=== PATIENT | male | born 1950 | race Caucasian/White ===

== ENCOUNTER 2017-10-15 12:03 | Emergency (ER) | payer BC, MEDICARE ==
[2017-10-15] MEDS ORDERED: Ketorolac 60 MG/2 ML SDV ONE (12:32)
[2017-10-15 17:57] VITALS: BP 133/100
--- NOTE | 2017-10-15 18:20 | CR ---
EXAMINATION: Lumbar spine HISTORY: Pain COMPARISON: None TECHNIQUE: AP and lateral views FINDINGS: The lumbar spinal alignment is normal. The vertebral body heights appear well maintained. L ikely chronic spondylolysis at L5 without significant spinal listhesis. Mild marginal osteophytes are noted. SI joints are symmetric. Bone mineralization is normal. Probable nonobstructing 9 mm left mckenzie al stone. IMPRESSION: 1. No acute findings demonstrated. 2. Likely chronic spondylolysis of L5. 3. Nonobstructing left nephrolithiasis.
== END 2017-10-15 14:05 | disposition home or self-care (01) ==
LOC: MW.ED 12:03
DX: M54.41 Lumbago with sciatica, right side (principal)
CPT/HCPCS: 72100; 72100-26; 96372; 99283; 99283-25

== ENCOUNTER 2020-04-08 14:09 | Observation (INO) | payer BC ==
[2020-04-08] MEDS ORDERED: Sodium Chloride 0.9% 2.5 ML Syringe FLUSH PRN (14:20)
[2020-04-08] MEDS ORDERED: Sodium Chloride 0.9% 10 ML Syringe FLUSH PRN (14:20)
[2020-04-08] MEDS ORDERED: Aspirin 81 MG Tab.Chew PO ONE (14:20)
--- NOTE | 2020-04-08 15:03 | CR ---
Chest: 2 views of the chest were obtained. Comparison: No previous chest x-ray. Cardiac silhouette and mediastinum are normal. Lungs are clear. Slight degenerative change is scattered within the spine. Impression: 1. Nothing acute is seen on 2 view chest x-ray. Diagnostic code #2 This report was dictated in MDT
[2020-04-08 15:05] LABS: BLOOD UREA NITROGEN,BUN 21 mg/dL (7.0-18.0); CARBON DIOXIDE,CO2 26.1 mmol/L (21.0-32.0); CHLORIDE,CL 105 mmol/L (98-107); GLUCOSE RANDOM 110 mg/dL (74-106); POTASSIUM,K 4.1 mmol/L (3.5-5.1); SODIUM,NA 142 mmol/L (136-148)
--- NOTE | 2020-04-08 15:21 | EDM.PDOC ---
ED HPI GENERAL MEDICAL PROBLEM - General Chief Complaint: General Stated Complaint: SENT BY RICH-HIGH BLOOD PRESSURE Time Seen by Provider: 04/08/20 14:11 Source of Information: Reports: Patient History Limitations: Reports: No Limitations - History of Present Illness INITIAL COMMENTS - FREE TEXT/NARRATIVE: History of present illness: 69-year-old male presenting after being sent by his primary care physician for cardiac evaluation. Patient reports over the last few days he has had some on and off chest pain/pressure as well as arm pain and shortness of breath. He presented to his primary care doctor's office today who was concerned about potential cardiac etiology and want him to have further cardiac work-up. Patient reports no prior cardiac history. Any other past medical history. Past surgical history including abdominal surgery. Review of systems: As per history of present illness and below otherwise all systems reviewed and negative. Past medical history: As per history of present illness and as reviewed below otherwise noncontributory. Surgical history: As per history of present illness and as reviewed below otherwise noncontributory. Social history: No reported history of drug or alcohol abuse. Former tobacco smoker, none for many years. Family history: As per history of present illness and as reviewed below otherwise noncontributory. Physical exam: HEENT: Atraumatic, normocephalic, mucous membranes moist, throat clear, Neck: supple, nontender, trachea midline. Lungs: No respiratory distress. Heart: RRR Abdomen: Soft, nondistended, nontender. Pelvis: Stable nontender. Extremities: Atraumatic. Neurovascularly unremarkable. Neuro: Awake, alert, oriented. Neuro Exam nonfocal. Diagnostics: [] Therapeutics: [] EGK performed today at 2:18 PM, sinus rhythm, left anterior fascicular block, no ischemia or STEMI. 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 Espinoza, this appears unchanged from EKG performed earlier today. MDM: EKG without acute ischemia/STEMI. Given aspirin here. Troponin negative. Chest x-ray unremarkable. Patient with cardiac risk factors , though no known past cardiac history. Will admit the patient for observation/ serial troponins. This was discussed with Dr. Reese, the admitting hospitalist who accepts admission. Impression: [] Plan: [] Definitive disposition and diagnosis as appropriate pending reevaluation and review of above. - Related Data Allergies Allergy/AdvReac Type Severity Reaction Status Date / Time No Known Allergies Allergy Verified 04/08/20 14:30 Home Meds: Home Meds Aspirin 81 mg PO DAILY 04/08/20 [History] Past Medical History Cardiovascular History: Reports: Blood Clots/VTE/DVT Other Gastrointestinal History: Had exploratory lap approx 10 years ago for possible "twisted colon" which resolved itself after he was "opened up" - Past Surgical History GI Surgical History: Reports: Appendectomy Social & Family History - Tobacco Use Smoking Status *Q: Current Every Day Smoker Years of Tobacco use: 40 Packs/Tins Daily: 0.1 - Recreational Drug Use Recreational Drug Use: No ED ROS GENERAL - Review of Systems Review Of Systems: See Below (See dictation) ED EXAM, GENERAL - Physical Exam Exam: See Below (See dictation) EKG INTERPRETATION EKG Interpretation Comments: EKG performed today at 2:18 PM, sinus rhythm, rate 77, left anterior fascicular block, no acute ischemia, no STEMI. Interpreted by me. Course - Vital Signs Last Recorded V/S: Last Vital Signs Temp 96.2 F L 04/08/20 14:27 Pulse 87 04/08/20 14:27 Resp 16 04/08/20 14:27 BP 146/95 H 04/08/20 14:59 Pulse Ox 94 L 04/08/20 14:27 - Orders/Labs/Meds Orders: Active Orders 24 hr Category Date Time Status EKG Documentation Completion [RC] STAT Care 04/08/20 14:20 Active Sodium Chloride 0.9% [Saline Flush] Med 04/08/20 14:20 Active 10 ml FLUSH ASDIRECTED PRN Sodium Chloride 0.9% [Saline Flush] Med 04/08/20 14:20 Active 2.5 ml FLUSH ASDIRECTED PRN Saline Lock Insert [OM.PC] Stat Oth 04/08/20 14:20 Ordered Medication Orders Sodium Chloride (Saline Flush) 10 ml FLUSH ASDIRECTED PRN PRN Reason: Keep Vein Open Sodium Chloride (Saline Flush) 2.5 ml FLUSH ASDIRECTED PRN PRN Reason: Keep Vein Open Labs: Laboratory Tests 04/08/20 04/08/20 04/08/20 Range/Units 14:24 14:24 14:24 WBC 7.67 (4.0-11.0) K/uL RBC 5.42 (4.50-5.90) M/uL Hgb 16.5 (13.0-17.0) g/dL Hct 48.2 (38.0-50.0) % MCV 88.9 (80.0-98.0) fL MCH 30.4 (27.0-32.0) pg MCHC 34.2 (31.0-37.0) g/dL RDW Std Deviation 43.7 (28.0-62.0) fl RDW Coeff of Adams 13 (11.0-15.0) % Plt Count 196 (150-400) K/uL MPV 10.90 (7.40-12.00) fL Neut % (Auto) 58.4 (48.0-80.0) % Lymph % (Auto) 30.6 (16.0-40.0) % [place] % (Auto) 8.0 (0.0-15.0) % Eos % (Auto) 2.5 (0.0-7.0) % Baso % (Auto) 0.5 (0.0-1.5) % Neut # (Auto) 4.5 (1.4-5.7) K/uL Lymph # (Auto) 2.4 (0.6-2.4) K/uL [place] # (Auto) 0.6 (0.0-0.8) K/uL Eos # (Auto) 0.2 (0.0-0.7) K/uL Baso # (Auto) 0.0 (0.0-0.1) K/uL Nucleated RBC % 0.0 /100WBC Nucleated RBCs # 0 K/uL INR 1.02 Sodium 142 (136-148) mmol/L Potassium 4.1 (3.5-5.1) mmol/L Chloride 105 (98-107) mmol/L Carbon Dioxide 26.1 (21.0-32.0) mmol/L BUN 21 H (7.0-18.0) mg/dL Creatinine 1.2 (0.8-1.3) mg/dL Est Cr Clr Drug Dosing 64.67 mL/min Estimated GFR (MDRD) > 60.0 ml/min Glucose 110 H (74-106) mg/dL Calcium 9.2 (8.5-10.1) mg/dL Total Bilirubin 0.7 (0.2-1.0) mg/dL AST 24 (15-37) IU/L ALT 34 (14-63) IU/L Alkaline Phosphatase 105 (46-116) U/L Troponin I < 0.050 (0.000-0.056) ng/mL B-Natriuretic Peptide (<100) PG/ML Total Protein 7.9 (6.4-8.2) g/dL Albumin 4.6 (3.4-5.0) g/dL Globulin 3.3 (2.6-4.0) g/dL Albumin/Globulin Ratio 1.4 (0.9-1.6) 04/08/20 Range/Units 14:24 WBC (4.0-11.0) K/uL RBC (4.50-5.90) M/uL Hgb (13.0-17.0) g/dL Hct (38.0-50.0) % MCV (80.0-98.0) fL MCH (27.0-32.0) pg MCHC (31.0-37.0) g/dL RDW Std Deviation (28.0-62.0) fl RDW Coeff of Adams (11.0-15.0) % Plt Count (150-400) K/uL MPV (7.40-12.00) fL Neut % (Auto) (48.0-80.0) % Lymph % (Auto) (16.0-40.0) % [place] % (Auto) (0.0-15.0) % Eos % (Auto) (0.0-7.0) % Baso % (Auto) (0.0-1.5) % Neut # (Auto) (1.4-5.7) K/uL Lymph # (Auto) (0.6-2.4) K/uL [place] # (Auto) (0.0-0.8) K/uL Eos # (Auto) (0.0-0.7) K/uL Baso # (Auto) (0.0-0.1) K/uL Nucleated RBC % /100WBC Nucleated RBCs # K/uL INR Sodium (136-148) mmol/L Potassium (3.5-5.1) mmol/L Chloride (98-107) mmol/L Carbon Dioxide (21.0-32.0) mmol/L BUN (7.0-18.0) mg/dL Creatinine (0.8-1.3) mg/dL Est Cr Clr Drug Dosing mL/min Estimated GFR (MDRD) ml/min Glucose (74-106) mg/dL Calcium (8.5-10.1) mg/dL Total Bilirubin (0.2-1.0) mg/dL AST (15-37) IU/L ALT (14-63) IU/L Alkaline Phosphatase (46-116) U/L Troponin I (0.000-0.056) ng/mL B-Natriuretic Peptide 8 (<100) PG/ML Total Protein (6.4-8.2) g/dL Albumin (3.4-5.0) g/dL Globulin (2.6-4.0) g/dL Albumin/Globulin Ratio (0.9-1.6) Meds: Medications Generic Name Dose Route Start Last Admin Trade Name Freq PRN Reason Stop Dose Admin Sodium Chloride 10 ml 04/08/20 14:20 Saline Flush FLUSH ASDIRECTED PRN Keep Vein Open Sodium Chloride 2.5 ml 04/08/20 14:20 Saline Flush FLUSH ASDIRECTED PRN Keep Vein Open Discontinued Medications Generic Name Dose Route Start Last Admin Trade Name Freq PRN Reason Stop Dose Admin Aspirin 324 mg 04/08/20 14:20 04/08/20 14:59 Aspirin PO 04/08/20 14:21 324 mg ONETIME ONE Administration - Re-Assessments/Exams Free Text/Narrative Re-Assessment/Exam: 04/08/20 16:12 No acute distress. Discussed with Dr. Reese, agrees with plan for admission. Recommends admit in observation status. Departure - Departure Time of Disposition: 16:13 Disposition: Refer to Observation Clinical Impression: Chest pain, moderate coronary artery risk - Discharge Information Sepsis Event Note (ED) - Evaluation Sepsis Screening Result: No Definite Risk - Focused Exam Vital Signs: Vital Signs Temp Pulse Resp BP Pulse Ox 04/08/20 14:59 146/95 H 04/08/20 14:27 96.2 F L 87 16 163/106 H 94 L - My Orders Last 24 Hours: My Active Orders 04/08/20 14:20 EKG Documentation Completion [RC] STAT Sodium Chloride 0.9% [Saline Flush] 10 ml FLUSH ASDIRECTED PRN Sodium Chloride 0.9% [Saline Flush] 2.5 ml FLUSH ASDIRECTED PRN Saline Lock Insert [OM.PC] Stat - Assessment/Plan Last 24 Hours: My Active Orders 04/08/20 14:20 EKG Documentation Completion [RC] STAT Sodium Chloride 0.9% [Saline Flush] 10 ml FLUSH ASDIRECTED PRN Sodium Chloride 0.9% [Saline Flush] 2.5 ml FLUSH ASDIRECTED PRN Saline Lock Insert [OM.PC] Stat
--- NOTE | 2020-04-08 17:37 | PCM.HP.2 ---
H&P History of Present Illness - General Date of Service: 04/08/20 Admit Problem/Dx: Admission Diagnosis/Problem Admission Diagnosis/Problem Chest pain with moderate risk of acute coronary syndrome Source of Information: Patient History Limitations: Reports: No Limitations - History of Present Illness Initial Comments - Free Text/Narative: 69 y.o male w. significant PMH of possible stroke vs TIA (pt unsure/2 years ago ) presenting today to ED on recommendations from his PCP at [facility] across the street. Pt. mentioned to PCP chest discomfort x 2-3 weeks but worsening these past couple of days. Describes it as a "chest soreness" and or " my chest got bruised"; however denies any acute trauma and or strenuous exercise. Otherwise denies any fevers, chills, body aches, recent travel, and or sick contacts. pt. describes some episodes of dizziness in the AM ; when getting up and moving around ; denies any vertiginous symptoms but describes it as getting weak but never falling over , completely passing out or LOC. pt does endorse not having been to a doctor "for many years". pt. otherwise has no acute coplaints at this time. 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 CXR: no acute cardio-pulmonary pathology appreciated per radiology. Chest Pain Score (Numeric/FACES): 5 - Related Data Allergies/Adverse Reactions: Allergies Allergy/AdvReac Type Severity Reaction Status Date / Time Penicillins Allergy unknown Verified 04/08/20 18:09 Home Medications: Home Meds Aspirin 81 mg PO DAILY 04/08/20 [History] Omeprazole 20 mg PO BIDAC cap.cr 04/09/20 [Rx] Past Medical History Cardiovascular History: Reports: Blood Clots/VTE/DVT Other Gastrointestinal History: Had exploratory lap approx 10 years ago for possible "twisted colon" which resolved itself after he was "opened up" - Past Surgical History GI Surgical History: Reports: Appendectomy Social & Family History - Tobacco Use Smoking Status *Q: Current Every Day Smoker Years of Tobacco use: 40 Packs/Tins Daily: 0.1 - Recreational Drug Use Recreational Drug Use: No H&P Review of Systems - Review of Systems: Review Of Systems: See Below General: Reports: No Symptoms. Denies: Fever, Chills, Malaise, Weakness HEENT: Reports: No Symptoms Pulmonary: Reports: No Symptoms. Denies: Shortness of Breath, Wheezing, Pleuritic Chest Pain, Cough, Sputum Cardiovascular: Reports: Chest Pain, Dyspnea on Exertion. Denies: Edema, Lightheadedness, Syncope, Claudication, Blood Pressure Problem Gastrointestinal: Reports: No Symptoms. Denies: Abdominal Pain, Constipation, Diarrhea Genitourinary: Reports: No Symptoms. Denies: Dysuria, Frequency, Burning, Pain , Urgency Musculoskeletal: Reports: No Symptoms Skin: Reports: No Symptoms Psychiatric: Reports: No Symptoms Neurological: Reports: No Symptoms. Denies: Headache Exam - Exam Exam: See Below - Vital Signs Vital Signs: Last Vital Signs Temp 96.2 F L 04/08/20 14:27 Pulse 87 04/08/20 14:27 Resp 16 04/08/20 14:27 BP 146/95 H 04/08/20 14:59 Pulse Ox 94 L 04/08/20 14:27 Weight: 104.326 kg - Exam Quality Assessment: No: Supplemental Oxygen General: Alert, Oriented, Cooperative HEENT: EOMI, Other (missing dentition) Neck: Supple, Trachea Midline Lungs: Clear to Auscultation, Normal Respiratory Effort Cardiovascular: Regular Rate, Regular Rhythm GI/Abdominal Exam: Normal Bowel Sounds, Soft, Non-Tender (Male) Exam: No Hernia Back Exam: Normal Inspection Extremities: Other (trace pitting edema ) Skin: Other (lesion/abrasion over left hand; clean ) Neurological: Cranial Nerves Intact Neuro Extensive - Mental Status: Alert, Oriented x3, Normal Mood/Affect Neuro Extensive - Motor, Sensory, Reflexes: CN II-XII Intact, Normal Gait Psychiatric: Alert, Normal Affect, Normal Mood - Patient Data Lab Results Last 24 hrs: Laboratory Results - last 24 hr 04/08/20 04/08/20 04/08/20 Range/Units 14:24 14:24 14:24 WBC 7.67 (4.0-11.0) K/uL RBC 5.42 (4.50-5.90) M/uL Hgb 16.5 (13.0-17.0) g/dL Hct 48.2 (38.0-50.0) % MCV 88.9 (80.0-98.0) fL MCH 30.4 (27.0-32.0) pg MCHC 34.2 (31.0-37.0) g/dL RDW Std Deviation 43.7 (28.0-62.0) fl RDW Coeff of Adams 13 (11.0-15.0) % Plt Count 196 (150-400) K/uL MPV 10.90 (7.40-12.00) fL Neut % (Auto) 58.4 (48.0-80.0) % Lymph % (Auto) 30.6 (16.0-40.0) % [place] % (Auto) 8.0 (0.0-15.0) % Eos % (Auto) 2.5 (0.0-7.0) % Baso % (Auto) 0.5 (0.0-1.5) % Neut # (Auto) 4.5 (1.4-5.7) K/uL Lymph # (Auto) 2.4 (0.6-2.4) K/uL [place] # (Auto) 0.6 (0.0-0.8) K/uL Eos # (Auto) 0.2 (0.0-0.7) K/uL Baso # (Auto) 0.0 (0.0-0.1) K/uL Nucleated RBC % 0.0 /100WBC Nucleated RBCs # 0 K/uL INR 1.02 Sodium 142 (136-148) mmol/L Potassium 4.1 (3.5-5.1) mmol/L Chloride 105 (98-107) mmol/L Carbon Dioxide 26.1 (21.0-32.0) mmol/L BUN 21 H (7.0-18.0) mg/dL Creatinine 1.2 (0.8-1.3) mg/dL Est Cr Clr Drug Dosing 64.67 mL/min Estimated GFR (MDRD) > 60.0 ml/min Glucose 110 H (74-106) mg/dL Calcium 9.2 (8.5-10.1) mg/dL Total Bilirubin 0.7 (0.2-1.0) mg/dL AST 24 (15-37) IU/L ALT 34 (14-63) IU/L Alkaline Phosphatase 105 (46-116) U/L Troponin I < 0.050 (0.000-0.056) ng/mL B-Natriuretic Peptide (<100) PG/ML Total Protein 7.9 (6.4-8.2) g/dL Albumin 4.6 (3.4-5.0) g/dL Globulin 3.3 (2.6-4.0) g/dL Albumin/Globulin Ratio 1.4 (0.9-1.6) 04/08/20 Range/Units 14:24 WBC (4.0-11.0) K/uL RBC (4.50-5.90) M/uL Hgb (13.0-17.0) g/dL Hct (38.0-50.0) % MCV (80.0-98.0) fL MCH (27.0-32.0) pg MCHC (31.0-37.0) g/dL RDW Std Deviation (28.0-62.0) fl RDW Coeff of Adams (11.0-15.0) % Plt Count (150-400) K/uL MPV (7.40-12.00) fL Neut % (Auto) (48.0-80.0) % Lymph % (Auto) (16.0-40.0) % [place] % (Auto) (0.0-15.0) % Eos % (Auto) (0.0-7.0) % Baso % (Auto) (0.0-1.5) % Neut # (Auto) (1.4-5.7) K/uL Lymph # (Auto) (0.6-2.4) K/uL [place] # (Auto) (0.0-0.8) K/uL Eos # (Auto) (0.0-0.7) K/uL Baso # (Auto) (0.0-0.1) K/uL Nucleated RBC % /100WBC Nucleated RBCs # K/uL INR Sodium (136-148) mmol/L Potassium (3.5-5.1) mmol/L Chloride (98-107) mmol/L Carbon Dioxide (21.0-32.0) mmol/L BUN (7.0-18.0) mg/dL Creatinine (0.8-1.3) mg/dL Est Cr Clr Drug Dosing mL/min Estimated GFR (MDRD) ml/min Glucose (74-106) mg/dL Calcium (8.5-10.1) mg/dL Total Bilirubin (0.2-1.0) mg/dL AST (15-37) IU/L ALT (14-63) IU/L Alkaline Phosphatase (46-116) U/L Troponin I (0.000-0.056) ng/mL B-Natriuretic Peptide 8 (<100) PG/ML Total Protein (6.4-8.2) g/dL Albumin (3.4-5.0) g/dL Globulin (2.6-4.0) g/dL Albumin/Globulin Ratio (0.9-1.6) Result Diagrams: 04/09/20 02:18 04/09/20 02:18 Sepsis Event Note - Evaluation Sepsis Screening Result: No Definite Risk - Focused Exam Vital Signs: Vital Signs Temp Pulse Resp BP Pulse Ox 04/08/20 14:59 146/95 H 04/08/20 14:27 96.2 F L 87 16 163/106 H 94 L Date Exam was Performed: 04/09/20 Time Exam was Performed: 13:12 Problem List Initiated/Reviewed/Updated: Yes Orders Last 24hrs: Active Orders 24 hr Category Date Time Status Admission Status [Patient Status] [ADT] Stat ADT 04/08/20 16:14 Active Activity as Tolerated [RC] .Routine Care 04/08/20 17:36 Active Cardiac Monitoring [RC] . DIRECTED Care 04/08/20 16:14 Active EKG Documentation Completion [RC] STAT Care 04/08/20 14:20 Active Intake and Output [RC] ASDIRECTED Care 04/08/20 17:36 Active Telemetry Monitoring [Cardiac Monitoring] [RC] . Care 04/08/20 17:22 Active DIRECTED Vital Signs [RC] PER UNIT ROUTINE Care 04/08/20 17:35 Active Sodium Chloride 0.9% [Saline Flush] Med 04/08/20 14:20 Active 10 ml FLUSH ASDIRECTED PRN Sodium Chloride 0.9% [Saline Flush] Med 04/08/20 14:20 Active 2.5 ml FLUSH ASDIRECTED PRN Saline Lock Insert [OM.PC] Stat Oth 04/08/20 14:20 Ordered Medication Orders Sodium Chloride (Saline Flush) 10 ml FLUSH ASDIRECTED PRN PRN Reason: Keep Vein Open Sodium Chloride (Saline Flush) 2.5 ml FLUSH ASDIRECTED PRN PRN Reason: Keep Vein Open Assessment/Plan Comment:: Assessment: 1. Chest pain w. concerns for ACS 2. Elevated BP 3. PMH: possible TIA vs stroke on daily ASA Plan: Admit to obs. Telemetry. Full code. Up ad nick. i/o's per routine. Cardiac diet. DVT: heparin 5000 q12. GI: Omeprazole 20 bid 1. CP/ACS: continue to trend troponin q 6 hours x 2. EKG: NSR w. concners for LAFB; continue to monitor. Vitals otherwise stable; BP mildly elevated but will monitor on telemetry. CXR: negative BNP: WNL Additional labs: lipid panel, A1c. 2. Will continue to monitor at this time; pt. in no acute distress at this time.
[2020-04-08] MEDS: Heparin Sodium 5,000 Units/ML Vial SUBCUT SCH (18:26)
[2020-04-08 20:21] LABS: HEMOGLOBIN A1C 6.3 % (4.5-6.2)
[2020-04-09 02:44] LABS: BLOOD UREA NITROGEN,BUN 24 mg/dL (7.0-18.0); CARBON DIOXIDE,CO2 26.5 mmol/L (21.0-32.0); CHLORIDE,CL 105 mmol/L (98-107); GLUCOSE RANDOM 115 mg/dL (74-106); POTASSIUM,K 3.7 mmol/L (3.5-5.1); SODIUM,NA 141 mmol/L (136-148)
[2020-04-09] MEDS: Heparin Sodium 5,000 Units/ML Vial SUBCUT SCH (06:36)
[2020-04-09] MEDS ORDERED: Omeprazole 20 MG Cap.CR PO SCH (07:30)
[2020-04-09] MEDS ORDERED: Aspirin 81 MG Tab.Chew PO SCH (09:00)
[2020-04-09] MEDS ORDERED: Insulin Aspart 100 Units/ML 3 ML Pen SUBCUT SCH (11:30)
--- NOTE | 2020-04-09 12:30 | PCM.DCSUM1 ---
<Candie Bernard - Last Filed: 04/09/20 13:09> Discharge Summary - Hospital Course Free Text/Narrative:: pt. is a 69 y.o male w. significant PMH of possible TIA/Stroke ; presenting from outpatient facility for concners for an ACS. pt. has been c.o vague chest pain which has been going on for approx. 3-4 weeks. Describes CP as a "soreness " and "bruised" feeling ; that does not really change. Denies any fevers, chills , Bodya aches, and or palpitations. Endorses some mild dyspnea on exertion at times but otherwise states he has no problems completing his work and ADL's. Uses ASA daily as was recommended but cannot recall exact diagnosis he had with his previous tia vs stroke 2 years prior. Mentions some dizziness at times in the AM but cannot think of any other inciting factor. ED course: EGK performed at 2:18 PM, sinus rhythm, left anterior fascicular block, no ischemia or STEMI. 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 EKG without acute ischemia/STEMI. Given aspirin here. Troponin negative. Chest x-ray unremarkable. Patient with cardiac risk factors , though no known past cardiac history. Will admit the patient for observation/ serial troponins. This was discussed with Dr. Reese, the admitting hospitalist who accepts admission. Course: Troponins trended x 3 ; negative. Repeat EKG performed in AM as pt. was c.o some mild chest discomfort; sinus dysarythmia w.o signs of ischemia appreciated. D-Dimer checked: WNL NO other acute electrolyte abnormalities appreciated. TSH WNL A1c elevated: discussed possible dx of Diabetes; discussed carb control and possible need for Metformin daily until Glucose control achieved. pt. understood and agreed. MOtivated to go home. Nothing acute appreciated. Outpatient Echo, stress test and Zio patch ordered. ADvised to follow up with PCP . - Discharge Data Discharge Date: 04/09/20 Discharge Disposition: Home, Self-Care 01 Condition: Good - Referral to Home Health Primary Care Physician: Rafael Espinoza MD - Patient Instructions Diet: Heart Healthy Diet Notify Provider of: Fever, Increased Pain, Nausea and/or Vomiting - Discharge Plan *PRESCRIPTION DRUG MONITORING PROGRAM REVIEWED*: No *COPY OF PRESCRIPTION DRUG MONITORING REPORT IN PATIENT DARLING: No Home Medications: Home Meds Aspirin 81 mg PO DAILY 04/08/20 [History] Omeprazole 20 mg PO BIDAC cap.cr 04/09/20 [Rx] Patient Handouts: Exercise Stress Test, [id number], Chest Wall Pain, Easy-to- Read, Ambulatory Cardiac Monitoring Referrals: Rafael Espinoza MD [Primary Care Provider] - (Please call Saturday to set up a follow up appointment with you primary care provider.) - Discharge Summary/Plan Comment DC Time >30 min.: No - Patient Data Vitals - Most Recent: Last Vital Signs Temp 98.1 F 04/09/20 08:57 Pulse 71 04/09/20 08:57 Resp 16 04/09/20 08:57 BP 143/84 H 04/09/20 08:57 Pulse Ox 95 04/09/20 08:57 Weight - Most Recent: 104.326 kg I&O - Last 24 hours: Intake & Output 04/08/20 04/09/20 04/09/20 22:59 06:59 14:59 Intake Total 600 Output Total 300 Balance 300 Lab Results - Last 24 hrs: Laboratory Results - last 24 hr 04/08/20 04/08/20 04/08/20 Range/Units 14:24 14:24 14:24 WBC 7.67 (4.0-11.0) K/uL RBC 5.42 (4.50-5.90) M/uL Hgb 16.5 (13.0-17.0) g/dL Hct 48.2 (38.0-50.0) % MCV 88.9 (80.0-98.0) fL MCH 30.4 (27.0-32.0) pg MCHC 34.2 (31.0-37.0) g/dL RDW Std Deviation 43.7 (28.0-62.0) fl RDW Coeff of Adams 13 (11.0-15.0) % Plt Count 196 (150-400) K/uL MPV 10.90 (7.40-12.00) fL Neut % (Auto) 58.4 (48.0-80.0) % Lymph % (Auto) 30.6 (16.0-40.0) % Maury % (Auto) 8.0 (0.0-15.0) % Eos % (Auto) 2.5 (0.0-7.0) % Baso % (Auto) 0.5 (0.0-1.5) % Neut # (Auto) 4.5 (1.4-5.7) K/uL Lymph # (Auto) 2.4 (0.6-2.4) K/uL Maury # (Auto) 0.6 (0.0-0.8) K/uL Eos # (Auto) 0.2 (0.0-0.7) K/uL Baso # (Auto) 0.0 (0.0-0.1) K/uL Nucleated RBC % 0.0 /100WBC Nucleated RBCs # 0 K/uL INR 1.02 D-Dimer, Quantitative (0.0-0.50) mg/L FEU Sodium 142 (136-148) mmol/L Potassium 4.1 (3.5-5.1) mmol/L Chloride 105 (98-107) mmol/L Carbon Dioxide 26.1 (21.0-32.0) mmol/L BUN 21 H (7.0-18.0) mg/dL Creatinine 1.2 (0.8-1.3) mg/dL Est Cr Clr Drug Dosing 64.67 mL/min Estimated GFR (MDRD) > 60.0 ml/min Glucose 110 H (74-106) mg/dL POC Glucose (60-110) mg/dL Hemoglobin A1c (4.5-6.2) % Calcium 9.2 (8.5-10.1) mg/dL Magnesium (1.8-2.4) mg/dL Total Bilirubin 0.7 (0.2-1.0) mg/dL AST 24 (15-37) IU/L ALT 34 (14-63) IU/L Alkaline Phosphatase 105 (46-116) U/L Troponin I < 0.050 (0.000-0.056) ng/mL B-Natriuretic Peptide (<100) PG/ML Total Protein 7.9 (6.4-8.2) g/dL Albumin 4.6 (3.4-5.0) g/dL Globulin 3.3 (2.6-4.0) g/dL Albumin/Globulin Ratio 1.4 (0.9-1.6) Triglycerides (0-200) mg/dL Cholesterol (50-200) mg/dL LDL Cholesterol, Calc (60-180) mg/dL VLDL Cholesterol (5-55) mg/dL HDL Cholesterol (40-60) mg/dL Cholesterol/HDL Ratio (3.3-6.0) TSH 3rd Generation (0.36-3.74) uIU/mL 04/08/20 04/08/20 04/08/20 Range/Units 14:24 14:24 14:24 WBC (4.0-11.0) K/uL RBC (4.50-5.90) M/uL Hgb (13.0-17.0) g/dL Hct (38.0-50.0) % MCV (80.0-98.0) fL MCH (27.0-32.0) pg MCHC (31.0-37.0) g/dL RDW Std Deviation (28.0-62.0) fl RDW Coeff of Aadms (11.0-15.0) % Plt Count (150-400) K/uL MPV (7.40-12.00) fL Neut % (Auto) (48.0-80.0) % Lymph % (Auto) (16.0-40.0) % Maury % (Auto) (0.0-15.0) % Eos % (Auto) (0.0-7.0) % Baso % (Auto) (0.0-1.5) % Neut # (Auto) (1.4-5.7) K/uL Lymph # (Auto) (0.6-2.4) K/uL Maury # (Auto) (0.0-0.8) K/uL Eos # (Auto) (0.0-0.7) K/uL Baso # (Auto) (0.0-0.1) K/uL Nucleated RBC % /100WBC Nucleated RBCs # K/uL INR D-Dimer, Quantitative (0.0-0.50) mg/L FEU Sodium (136-148) mmol/L Potassium (3.5-5.1) mmol/L Chloride (98-107) mmol/L Carbon Dioxide (21.0-32.0) mmol/L BUN (7.0-18.0) mg/dL Creatinine (0.8-1.3) mg/dL Est Cr Clr Drug Dosing mL/min Estimated GFR (MDRD) ml/min Glucose (74-106) mg/dL POC Glucose (60-110) mg/dL Hemoglobin A1c (4.5-6.2) % Calcium (8.5-10.1) mg/dL Magnesium 2.2 (1.8-2.4) mg/dL Total Bilirubin (0.2-1.0) mg/dL AST (15-37) IU/L ALT (14-63) IU/L Alkaline Phosphatase (46-116) U/L Troponin I (0.000-0.056) ng/mL B-Natriuretic Peptide 8 (<100) PG/ML Total Protein (6.4-8.2) g/dL Albumin (3.4-5.0) g/dL Globulin (2.6-4.0) g/dL Albumin/Globulin Ratio (0.9-1.6) Triglycerides 86 (0-200) mg/dL Cholesterol 117 (50-200) mg/dL LDL Cholesterol, Calc 63 (60-180) mg/dL VLDL Cholesterol 17 (5-55) mg/dL HDL Cholesterol 37 L (40-60) mg/dL Cholesterol/HDL Ratio 3.2 L (3.3-6.0) TSH 3rd Generation (0.36-3.74) uIU/mL 04/08/20 04/08/20 04/09/20 Range/Units 20:01 20:01 02:18 WBC (4.0-11.0) K/uL RBC (4.50-5.90) M/uL Hgb (13.0-17.0) g/dL Hct (38.0-50.0) % MCV (80.0-98.0) fL MCH (27.0-32.0) pg MCHC (31.0-37.0) g/dL RDW Std Deviation (28.0-62.0) fl RDW Coeff of Adams (11.0-15.0) % Plt Count (150-400) K/uL MPV (7.40-12.00) fL Neut % (Auto) (48.0-80.0) % Lymph % (Auto) (16.0-40.0) % Maury % (Auto) (0.0-15.0) % Eos % (Auto) (0.0-7.0) % Baso % (Auto) (0.0-1.5) % Neut # (Auto) (1.4-5.7) K/uL Lymph # (Auto) (0.6-2.4) K/uL Maury # (Auto) (0.0-0.8) K/uL Eos # (Auto) (0.0-0.7) K/uL Baso # (Auto) (0.0-0.1) K/uL Nucleated RBC % /100WBC Nucleated RBCs # K/uL INR D-Dimer, Quantitative (0.0-0.50) mg/L FEU Sodium (136-148) mmol/L Potassium (3.5-5.1) mmol/L Chloride (98-107) mmol/L Carbon Dioxide (21.0-32.0) mmol/L BUN (7.0-18.0) mg/dL Creatinine (0.8-1.3) mg/dL Est Cr Clr Drug Dosing mL/min Estimated GFR (MDRD) ml/min Glucose (74-106) mg/dL POC Glucose (60-110) mg/dL Hemoglobin A1c 6.3 H (4.5-6.2) % Calcium (8.5-10.1) mg/dL Magnesium (1.8-2.4) mg/dL Total Bilirubin (0.2-1.0) mg/dL AST (15-37) IU/L ALT (14-63) IU/L Alkaline Phosphatase (46-116) U/L Troponin I < 0.050 < 0.050 (0.000-0.056) ng/mL B-Natriuretic Peptide (<100) PG/ML Total Protein (6.4-8.2) g/dL Albumin (3.4-5.0) g/dL Globulin (2.6-4.0) g/dL Albumin/Globulin Ratio (0.9-1.6) Triglycerides (0-200) mg/dL Cholesterol (50-200) mg/dL LDL Cholesterol, Calc (60-180) mg/dL VLDL Cholesterol (5-55) mg/dL HDL Cholesterol (40-60) mg/dL Cholesterol/HDL Ratio (3.3-6.0) TSH 3rd Generation (0.36-3.74) uIU/mL 04/09/20 04/09/20 04/09/20 Range/Units 02:18 02:18 02:18 WBC 6.69 (4.0-11.0) K/uL RBC 5.14 (4.50-5.90) M/uL Hgb 15.7 (13.0-17.0) g/dL Hct 45.7 (38.0-50.0) % MCV 88.9 (80.0-98.0) fL MCH 30.5 (27.0-32.0) pg MCHC 34.4 (31.0-37.0) g/dL RDW Std Deviation 43.5 (28.0-62.0) fl RDW Coeff of Adams 13 (11.0-15.0) % Plt Count 184 (150-400) K/uL MPV 10.70 (7.40-12.00) fL Neut % (Auto) 52.9 (48.0-80.0) % Lymph % (Auto) 33.0 (16.0-40.0) % Maury % (Auto) 9.0 (0.0-15.0) % Eos % (Auto) 4.5 (0.0-7.0) % Baso % (Auto) 0.6 (0.0-1.5) % Neut # (Auto) 3.5 (1.4-5.7) K/uL Lymph # (Auto) 2.2 (0.6-2.4) K/uL Maury # (Auto) 0.6 (0.0-0.8) K/uL Eos # (Auto) 0.3 (0.0-0.7) K/uL Baso # (Auto) 0.0 (0.0-0.1) K/uL Nucleated RBC % 0.0 /100WBC Nucleated RBCs # 0 K/uL INR D-Dimer, Quantitative (0.0-0.50) mg/L FEU Sodium 141 (136-148) mmol/L Potassium 3.7 (3.5-5.1) mmol/L Chloride 105 (98-107) mmol/L Carbon Dioxide 26.5 (21.0-32.0) mmol/L BUN 24 H (7.0-18.0) mg/dL Creatinine 1.1 (0.8-1.3) mg/dL Est Cr Clr Drug Dosing 70.55 mL/min Estimated GFR (MDRD) > 60.0 ml/min Glucose 115 H (74-106) mg/dL POC Glucose (60-110) mg/dL Hemoglobin A1c (4.5-6.2) % Calcium 8.4 L (8.5-10.1) mg/dL Magnesium 2.2 (1.8-2.4) mg/dL Total Bilirubin 0.8 (0.2-1.0) mg/dL AST 25 (15-37) IU/L ALT 35 (14-63) IU/L Alkaline Phosphatase 101 (46-116) U/L Troponin I (0.000-0.056) ng/mL B-Natriuretic Peptide (<100) PG/ML Total Protein 6.8 (6.4-8.2) g/dL Albumin 4.1 (3.4-5.0) g/dL Globulin 2.7 (2.6-4.0) g/dL Albumin/Globulin Ratio 1.5 (0.9-1.6) Triglycerides (0-200) mg/dL Cholesterol (50-200) mg/dL LDL Cholesterol, Calc (60-180) mg/dL VLDL Cholesterol (5-55) mg/dL HDL Cholesterol (40-60) mg/dL Cholesterol/HDL Ratio (3.3-6.0) TSH 3rd Generation 2.28 (0.36-3.74) uIU/mL 04/09/20 04/09/20 04/09/20 Range/Units 09:02 10:18 11:18 WBC (4.0-11.0) K/uL RBC (4.50-5.90) M/uL Hgb (13.0-17.0) g/dL Hct (38.0-50.0) % MCV (80.0-98.0) fL MCH (27.0-32.0) pg MCHC (31.0-37.0) g/dL RDW Std Deviation (28.0-62.0) fl RDW Coeff of Adams (11.0-15.0) % Plt Count (150-400) K/uL MPV (7.40-12.00) fL Neut % (Auto) (48.0-80.0) % Lymph % (Auto) (16.0-40.0) % Maury % (Auto) (0.0-15.0) % Eos % (Auto) (0.0-7.0) % Baso % (Auto) (0.0-1.5) % Neut # (Auto) (1.4-5.7) K/uL Lymph # (Auto) (0.6-2.4) K/uL Maury # (Auto) (0.0-0.8) K/uL Eos # (Auto) (0.0-0.7) K/uL Baso # (Auto) (0.0-0.1) K/uL Nucleated RBC % /100WBC Nucleated RBCs # K/uL INR D-Dimer, Quantitative 0.34 (0.0-0.50) mg/L FEU Sodium (136-148) mmol/L Potassium (3.5-5.1) mmol/L Chloride (98-107) mmol/L Carbon Dioxide (21.0-32.0) mmol/L BUN (7.0-18.0) mg/dL Creatinine (0.8-1.3) mg/dL Est Cr Clr Drug Dosing mL/min Estimated GFR (MDRD) ml/min Glucose (74-106) mg/dL POC Glucose 140 H 115 H (60-110) mg/dL Hemoglobin A1c (4.5-6.2) % Calcium (8.5-10.1) mg/dL Magnesium (1.8-2.4) mg/dL Total Bilirubin (0.2-1.0) mg/dL AST (15-37) IU/L ALT (14-63) IU/L Alkaline Phosphatase (46-116) U/L Troponin I (0.000-0.056) ng/mL B-Natriuretic Peptide (<100) PG/ML Total Protein (6.4-8.2) g/dL Albumin (3.4-5.0) g/dL Globulin (2.6-4.0) g/dL Albumin/Globulin Ratio (0.9-1.6) Triglycerides (0-200) mg/dL Cholesterol (50-200) mg/dL LDL Cholesterol, Calc (60-180) mg/dL VLDL Cholesterol (5-55) mg/dL HDL Cholesterol (40-60) mg/dL Cholesterol/HDL Ratio (3.3-6.0) TSH 3rd Generation (0.36-3.74) uIU/mL Med Orders - Current: Current Medications Aspirin (Aspirin) [address] [facility] Last Admin: 04/09/20 08:53 Dose: 81 mg Heparin Sodium (Porcine) (Heparin Sodium) 5,[address] [facility] Last Admin: 04/09/20 06:36 Dose: 5,000 units Insulin Aspart (Novolog) [address] [facility]; Protocol Last Admin: 04/09/20 11:21 Dose: Not Given Omeprazole (Omeprazole) [address] [facility] Last Admin: 04/09/20 06:36 Dose: 20 mg Sodium Chloride (Saline Flush) 10 ml FLUSH ASDIRECTED PRN PRN Reason: Keep Vein Open Sodium Chloride (Saline Flush) 2.5 ml FLUSH ASDIRECTED PRN PRN Reason: Keep Vein Open Discontinued Medications Aspirin (Aspirin) 324 mg PO ONETIME ONE Stop: 04/08/20 14:21 Last Admin: 04/08/20 14:59 Dose: 324 mg <Kyle Reese J - Last Filed: 04/11/20 14:04> Discharge Summary - Referral to Home Health Primary Care Physician: Rafael Espinoza MD - Patient Data Vitals - Most Recent: Last Vital Signs Temp 36.1 C 04/09/20 12:00 Pulse 68 04/09/20 12:00 Resp 18 04/09/20 12:00 BP 136/83 04/09/20 12:00 Pulse Ox 94 L 04/09/20 12:00 Med Orders - Current: Current Medications Discontinued Medications Aspirin (Aspirin) 324 mg PO ONETIME ONE Stop: 04/08/20 14:21 Last Admin: 04/08/20 14:59 Dose: 324 mg Aspirin (Aspirin) [address] [facility] Last Admin: 04/09/20 08:53 Dose: 81 mg Heparin Sodium (Porcine) (Heparin Sodium) 5,[address] [facility] Last Admin: 04/09/20 06:36 Dose: 5,000 units Insulin Aspart (Novolog) [address] [facility]; Protocol Last Admin: 04/09/20 11:21 Dose: Not Given Omeprazole (Omeprazole) [address] [facility] Last Admin: 04/09/20 06:36 Dose: 20 mg Sodium Chloride (Saline Flush) 10 ml FLUSH ASDIRECTED PRN PRN Reason: Keep Vein Open Sodium Chloride (Saline Flush) 2.5 ml FLUSH ASDIRECTED PRN PRN Reason: Keep Vein Open - Free Text/Narrative Note: I have seen and evaluated the patient with the resident. I have discussed findings and treatment plan with resident. I agree with the assessment and plan as outlined in the following note.
[2020-04-09 12:35] VITALS: BP 136/83; PULSE 68
== END 2020-04-09 13:45 | disposition home or self-care (01) ==
LOC: MW.ED 14:09 → MW.MS 16:14
PROVIDERS: ADMIT Internal Medicine; ATTEND Internal Medicine
DX: R07.89 Other chest pain (principal); R03.0 Elevated blood-pressure reading, without diagnosis of hypertension; R42 Dizziness and giddiness; R06.02 Shortness of breath; F17.210 Nicotine dependence, cigarettes, uncomplicated; Z79.82 Long term (current) use of aspirin; Z88.0 Allergy status to penicillin
CPT/HCPCS: 36415; 71046; 80053; 80061; 82962; 83036; 83735; 83880; 84443; 84484; 85025; 85379; 85610; 93005; 96372; 99285; A9270; G0378; J1644